=== PATIENT | male | born 1995 | race Two or more races ===

== ENCOUNTER 2024-01-31 11:06 | Emergency (ER) | payer OTHER ==
[~2024-01-31] VITALS: Ht 160 cm; Wt 101.6 kg
[2024-01-31] MEDS ORDERED: CHLORTHALIDONE25 MG (11:36)
[2024-01-31] MEDS ORDERED: ZESTRIL10 M1 (11:36)
[2024-01-31] MEDS ORDERED: KETOROLAC TROMETHAMINE 60 MG VIAL IM STA (13:33)
[2024-01-31 14:02] LABS: HEMATOCRIT 47.6 % (39.0-48.0); HEMOGLOBIN 17.2 g/dL (13-16.00); MEAN CELL VOLUME 88.3 fL (80.0-100.00); MEAN CORPUSCULAR HEMOGLOBIN 31.9 pg (27.00-32.0); MEAN CORPUSCULAR HGB CONC 36.1 g/dl (32.0-36.0); PLATELET COUNT 239 K/uL (150-450); RED BLOOD COUNT 5.39 M/uL (4.00-6.00); RED CELL DISTRIBUTION WIDTH 12.2 % (11.5-14.5)
== END 2024-01-31 15:38 | disposition home or self-care (01) ==
LOC: ER 11:07
PROVIDERS: General Practice
DX: T50.B91A Poisoning by other viral vaccines, accidental (unintentional), initial encounter (principal); Z91.013 Allergy to seafood; J45.909 Unspecified asthma, uncomplicated; I10 Essential (primary) hypertension